=== PATIENT | female | born 1990 ===

== ENCOUNTER 2020-04-13 20:15 | Inpatient (IN) | payer OTHER ==
[2020-04-13 21:29] LABS: Absolute Lymphocytes (CBC) 1.7 K/uL (0.7-4.9); Basophils % 0.9 % (0-1.3); Hematocrit 28.1 % (36.0-45.0); Lymphocytes % 23.7 % (15.3-44.8); MPV 9.3 fL (7.6-11.3)
[2020-04-13 21:55] LABS: ALT/SGPT 44 U/L (12-78); AST/SGOT 35 U/L (15-37); Albumin 2.4 g/dL (3.4-5.0); Alkaline Phosphatase 103 U/L (45-117); BUN Blood Urea Nitrogen 12 mg/dL (7-18); Bicarbonate 24 mmol/L (21-32); Bilirubin Direct < 0.1 mg/dL (0-0.2); Bilirubin Total 0.2 mg/dL (0.2-1.0); Glucose Level 69 mg/dL (74-106); Magnesium 1.7 mg/dL (1.8-2.4); NT PRO-BNP 1400 pg/mL (<125); Potassium 4.2 mmol/L (3.5-5.1); Protein, Total 6.4 g/dL (6.4-8.2); Sodium Level 143 mmol/L (136-145); Troponin (Emerg Dept Use Only) < 0.02 ng/mL (0.0-0.045)
[2020-04-13 22:07] LABS: Protime INR 0.87
[2020-04-13 22:55] LABS: Urine Blood 3+ (NEG); Urine Glucose NEGATIVE (NEG); Urine Protein 2+ (NEG)
[2020-04-13 22:56] LABS: Urine Bacteria <20 /HPF (<20); Urine Culture Reflex Order REFLEXED; Urine RBC >50 /HPF (NONE SEEN)
[2020-04-14] MEDS ORDERED: MAGNESIUM SULFATE 1 gm IVPB 1 GM/100 ML BAG IV ONE (00:56)
[2020-04-14] MEDS ORDERED: FUROSEMIDE 20 MG/ 2ML VIAL ONE (01:46)
--- NOTE | 2020-04-14 02:44 | ER ---
Nurse's Notes [facility] Name: Ramírez Espinosa Age: 29 yrs Sex: Female : 1990 Arrival Date: 04/13/2020 Time: 20:18 Bed 16 Private MD: Diagnosis: Pleural effusion in other conditions classified elsewhere-bilateral;Pulmonary edema Presentation: 04/13 20:52 Chief complaint: Patient states: she had a on Saturday and has now developed bb SOB and has had bilateral leg swelling since the which has not gone away. Coronavirus screen: At this time, the client does not indicate any symptoms associated with coronavirus-19. Ebola Screen: No symptoms or risks identified at this time. Initial Sepsis Screen: Does the patient meet any 2 criteria? No. Patient's initial sepsis screen is negative. Does the patient have a suspected source of infection? No. Patient's initial sepsis screen is negative. Risk Assessment: Do you want to hurt yourself or someone else? Patient reports no desire to harm self or others. Onset of symptoms was April 13, 2020. 20:52 Method Of Arrival: Ambulatory bb 20:52 Acuity: JOAO 2 bb Triage Assessment: 20:54 General: Appears uncomfortable, Behavior is cooperative, anxious. Pain: Complains of bb pain in abdomen Pain currently is 2 out of 10 on a pain scale. Neuro: Level of Consciousness is awake, alert, obeys commands, Oriented to person, place, time, situation. Respiratory: Reports shortness of breath Onset: The symptoms/episode began/occurred today, the patient has moderate shortness of breath. 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 - Social history:: Smoking status: Patient denies any tobacco usage or history of. Screenin:50 Abuse screen: Denies threats or abuse. Nutritional screening: No deficits noted. jb4 Tuberculosis screening: No symptoms or risk factors identified. Fall Risk None identified. Assessment: 20:50 General: Appears in no apparent distress. distressed, Behavior is calm, cooperative. jb4 Pain: Denies pain. Neuro: Level of Consciousness is awake, alert, obeys commands, Oriented to person, place, time, situation. Cardiovascular: Patient's skin is warm and dry. Rhythm is sinus rhythm. Respiratory: Airway is patent Respiratory effort is even, labored, Respiratory pattern is regular, tachypnea Breath sounds are clear bilaterally. GI: No signs and/or symptoms were reported involving the gastrointestinal system. : No signs and/or symptoms were reported regarding the genitourinary system. EENT: No signs and/or symptoms were reported regarding the EENT system. Derm: Skin is intact, Skin is pink, warm \T\ dry. Musculoskeletal: Circulation, motion, and sensation intact. Range of motion: intact in all extremities. 22:00 Reassessment: Patient and/or family updated on plan of care and expected duration. Pain jb4 level reassessed. PT remains A\T\O x4. Remains tachypneic, reports feeling better while sitting in the bed, continues to reports feeling short of breath. 23:00 Reassessment: No changes from previously documented assessment. Patient and/or family jb4 updated on plan of care and expected duration. Pain level reassessed. 04/14 00:00 Reassessment: Patient and/or family updated on plan of care and expected duration. Pain jb4 level reassessed. Pt is resting comfortably in bed. Updated on POC. PT verbalizes understanding of POC. PT is tachypneic, reports some SOB. Reports it is no worse than before. Assisted with sitting up in bed. Reports dyspnea decreased with sitting up. 01:00 Reassessment: Patient and/or family updated on plan of care and expected duration. Pain jb4 level reassessed. PT is resting in bed. Remains A\T\Ox4. respirations are even and unlabored. Pt continues to report intermittent dyspnea. Currently denies shortness of breath. Denies pain. No s/s of distress noted. 02:15 Reassessment: Patient and/or family updated on plan of care and expected duration. Pain jb4 level reassessed. Patient is alert, oriented x 3, equal unlabored respirations, skin warm/dry/pink. PT updated on plan of care of, updated on result. Informed of need for transfer. PT ambulated to the restroom. Tolerated well. Denies shortness of breath. is now back in bed resting comfortably. 03:15 Reassessment: Patient and/or family updated on plan of care and expected duration. Pain jb4 level reassessed. Patient is alert, oriented x 3, equal unlabored respirations, skin warm/dry/pink. Pt reports feeling better after medication administration. Denies pain. Remains A\T\Ox4. 04:07 Reassessment: No changes from previously documented assessment. Patient and/or family jb4 updated on plan of care and expected duration. Pain level reassessed. Patient is alert, oriented x 3, equal unlabored respirations, skin warm/dry/pink. 04:30 Reassessment: PT admitted to ER hold. jb4 15:13 Reassessment: PT NOTIFIED OF NEGATIVE COVID RESULTS. Vital Signs: 04/13 20:52 BP 155 / 99; Pulse 79; Resp 26 S; Temp 98.4(O); Pulse Ox 97% on R/A; Weight 108.86 kg bb (R); Height 5 ft. 3 in. (160.02 cm) (R); Pain 2/10; 21:30 BP 145 / 85; Pulse 67; Resp 24; Pulse Ox 98% on R/A; jb4 22:30 BP 140 / 75; Pulse 77; Resp 28; Pulse Ox 97% on R/A; jb4 04/14 00:00 BP 137 / 91; Pulse 74; Resp 22; Pulse Ox 98% on R/A; jb4 01:00 BP 146 / 86; Pulse 64; Resp 20; Pulse Ox 98% on R/A; jb4 01:45 BP 140 / 66; Pulse 76; Resp 20; Pulse Ox 97% on R/A; jb4 02:45 BP 129 / 81; Pulse 74; Resp 22; Pulse Ox 97% on R/A; jb4 03:45 BP 130 / 85; Pulse 70; Resp 20; Pulse Ox 98% on R/A; jb4 04:30 BP 151 / 92; Pulse 70; Resp 18; Pulse Ox 98% on R/A; jb4 04/13 20:52 Body Mass Index 42.51 (108.86 kg, 160.02 cm) ED Course: 04/13 20:18 Patient arrived in ED. cf2 20:49 Laureano Gonzalez PA is PHCP. cp 20:49 Salomon Baxter MD is Attending Physician. cp 20:50 Patient has correct armband on for positive identification. Placed in gown. Bed in low jb4 position. Call light in reach. Side rails up X 1. 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 Pulse ox on. NIBP on. 20:53 Triage completed. bb 20:54 Arm band placed on Patient placed in an exam room, on a stretcher, on pulse oximetry. bb 20:57 Duglas Trammell, RN is Primary Nurse. jb4 21:42 EKG done, by ED staff, reviewed by Laureano FITZGERADL Flu and/or RSV swab sent to lab. PT jp3 swabbed for COVID-19. 22:10 XRAY Chest (1 view) In Process Unspecified. EDMS 22:33 Urine Microscopic Only Sent. jb4 22:53 US Extremity Venous W Compression Jaswant In Process Unspecified. EDMS 08 00:05 CT Chest For PE Angio In Process Unspecified. EDMS 02:43 Wilberto Fine is Hospitalizing Provider. cp 04:30 No provider procedures requiring assistance completed. Patient admitted, IV remains in jb4 place. Administered Medications: 00:55 Drug: Magnesium Sulfate 1 grams Route: IVPB; Infused Over: 1 hrs; Site: left jb4 antecubital; 01:55 Follow up: Response: No adverse reaction; IV Status: Completed infusion jb4 01:50 Drug: Lasix 20 mg Route: IVP; Site: left antecubital; jb4 02:30 Follow up: Response: No adverse reaction; Marked relief of symptoms jb4 03:47 Drug: PHENobarbital 60 mg Route: PO; jb4 04:12 Follow up: Response: No adverse reaction jb4 Outcome: 02:44 Decision to Hospitalize by Provider. cp 04:30 Admitted to ER Hold. Please see [facility] for further documentation. jb4 04:30 Condition: stable 04:30 Discharge instructions given to patient, Instructed on the need for admit, Demonstrated understanding of instructions. 11:34 Patient left the ED. ph Signatures: Dispatcher [employer] EDMS Marci Aguirre RN RN bb Hall, Patricia RN RN ph Laureano Gonzalez PA PA cp Moriah Pinzon RN RN Duglas Trammell RN RN jb4 Dillon Tracy jp3 Alfonso Rao cf2 Corrections: (The following items were deleted from the chart) 00:04/13 20:50 Cardiovascular: Patient's skin is warm and dry. jb4 jb4 04/14 00:04/13 20:50 Respiratory: Airway is patent Respiratory effort is even, labored, jb4 Respiratory pattern is regular, tachypnea jb4
--- NOTE | 2020-04-14 02:44 | EDPHYS ---
Physician Documentation [facility] Name: Ramírez Espinosa Age: 29 yrs Sex: Female : 1990 Arrival Date: 04/13/2020 Time: 20:18 Bed 16 Private MD: ED Physician Salomon Baxter HPI: 04/13 21:15 This 29 yrs old Unknown Female presents to ER via Ambulatory with complaints of High cp Blood Pressure, Leg Swelling, Shortness Of Breath, Ringing in ears. 21:15 The patient has shortness of breath with light activity. cp 21:15 Onset: The symptoms/episode began/occurred gradually. Duration: The symptoms are cp continuous, and are steadily getting worse. Associated signs and symptoms: Pertinent negatives: chest pain, productive cough, diaphoresis, dizziness, fever, hemoptysis. Severity of symptoms: in the emergency department the symptoms are unchanged despite home interventions. Patient reports having recent delivery of a healthy [address] Azar at [facility]. Patient denies complications and reports was due to positioning of and infant was full-term. 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 - Social history:: Smoking status: Patient denies any tobacco usage or history of. ROS: 21:20 Constitutional: Negative for body aches, chills, fever, poor PO intake. cp 21:20 Eyes: Negative for injury, pain, redness, and discharge. cp 21:20 ENT: Negative for ear pain, sore throat, difficulty swallowing, difficulty handling secretions. 21:20 Cardiovascular: Positive for edema, Negative for chest pain, palpitations. 21:20 Respiratory: Positive for dyspnea on exertion, shortness of breath, on exertion. Negative for cough, wheezing. 21:20 Abdomen/GI: Positive for abdominal pain, Negative for nausea, vomiting, and diarrhea. 21:20 Back: Negative for radiated pain. 21:20 : Negative for urinary symptoms. 21:20 Skin: Negative for rash. 21:20 Neuro: Negative for altered mental status, headache, syncope, weakness. 21:20 All other systems are negative. Exam: 21:25 Constitutional: The patient appears in no acute distress, alert, awake, cp non-diaphoretic, non-toxic, well developed, well nourished. 21:25 Head/Face: Normocephalic, atraumatic. cp 21:25 Eyes: Periorbital structures: appear normal, Conjunctiva: normal, no exudate, no injection, Sclera: no appreciated abnormality, Lids and lashes: appear normal, bilaterally. 21:25 ENT: External ear(s): are unremarkable, Nose: is normal, Mouth: Lips: moist, Oral mucosa: moist, Posterior pharynx: Airway: no evidence of obstruction, patent. 21:25 Neck: ROM/movement: is normal, is supple, without pain, no range of motions limitations, no meningismus. 21:25 Chest/axilla: Inspection: normal, Palpation: is normal, no crepitus, no tenderness. 21:25 Cardiovascular: Rate: normal, Rhythm: regular, Edema: pedal edema, that is mild, JVD: is not appreciated. 21:25 Respiratory: the patient does not display signs of respiratory distress, Respirations: labored breathing, is not present, intercostal retractions, are absent, shallow respirations, are not present, Breath sounds: are clear throughout, no decreased breath sounds, no stridor, no wheezing. 21:25 Abdomen/GI: Inspection: abdomen appears normal, Bowel sounds: active, all quadrants, Palpation: soft, in all quadrants, mild abdominal tenderness, in the right lower quadrant and left lower quadrant, rebound tenderness, is not appreciated, voluntary guarding, is elicited in the right lower quadrant and left lower quadrant. 21:25 Back: pain, is absent, ROM is normal. 21:25 Skin: no rash present. 21:25 Neuro: Orientation: to person, place \T\ time. Mentation: is normal, Motor: moves all fours, strength is normal. 21:50 ECG was reviewed by the Attending Physician. cp Vital Signs: 20:52 BP 155 / 99; Pulse 79; Resp 26 S; Temp 98.4(O); Pulse Ox 97% on R/A; Weight 108.86 kg bb (R); Height 5 ft. 3 in. (160.02 cm) (R); Pain 2/10; 21:30 BP 145 / 85; Pulse 67; Resp 24; Pulse Ox 98% on R/A; jb4 22:30 BP 140 / 75; Pulse 77; Resp 28; Pulse Ox 97% on R/A; jb4 04/14 00:00 BP 137 / 91; Pulse 74; Resp 22; Pulse Ox 98% on R/A; jb4 01:00 BP 146 / 86; Pulse 64; Resp 20; Pulse Ox 98% on R/A; jb4 01:45 BP 140 / 66; Pulse 76; Resp 20; Pulse Ox 97% on R/A; jb4 02:45 BP 129 / 81; Pulse 74; Resp 22; Pulse Ox 97% on R/A; jb4 03:45 BP 130 / 85; Pulse 70; Resp 20; Pulse Ox 98% on R/A; jb4 04:30 BP 151 / 92; Pulse 70; Resp 18; Pulse Ox 98% on R/A; jb4 04/13 20:52 Body Mass Index 42.51 (108.86 kg, 160.02 cm) bb MDM: 04/13 21:21 Patient medically screened. 04/14 01:49 Data reviewed: vital signs, nurses notes, lab test result(s), EKG, radiologic studies, cp CT scan, plain films. 02:18 ED course: Spoke with transfer center at [facility] concerning patient, cp request denied due to the facilities lack of cardiology coverage. 04/13 21:09 Order name: Basic Metabolic Panel; Complete Time: 22:08 [facility] 04/13 22:09 Interpretation: Normal except: CL 111; GLUC 69. 04/13 21:09 Order name: CBC with Diff; Complete Time: 22:08 [facility] 04/13 22:09 Interpretation: Normal except: RBC 3.10; HGB 9.7; HCT 28.1; EOSINOPHIL % 4.7. 04/13 21:09 Order name: LFT's; Complete Time: 22:08 [facility] 04/13 21:09 Order name: Magnesium; Complete Time: 22:08 [facility] 04/13 21:09 Order name: NT PRO-BNP; Complete Time: 22:08 [facility] 04/13 22:09 Interpretation: NT PRO-BNP 1400; Reviewed. 04/13 21:09 Order name: PT-INR; Complete Time: 00:33 jb4 04/13 21:09 Order name: Troponin (emerg Dept Use Only); Complete Time: 22:08 jb4 04/13 21:21 Order name: COVID-19 04/13 21:21 Order name: Flu 04/13 21:21 Order name: CORONAVIRUS EDVT 04/13 21:21 Order name: Influenza Screen (A ; Complete Time: 00:33 EDMS 04/13 22:12 Order name: D-Dimer; Complete Time: 00:33 EDMS 04/14 02:23 Interpretation: Abnormal: D-DIMER 2369. cp 04/13 22:12 Order name: Urine Microscopic Only; Complete Time: 00:33 04/14 00:33 Interpretation: Normal except: UWBC 10-20; URBC >50. 04/13 22:35 Order name: Urine Dipstick--Ancillary (enter results); Complete Time: 00:33 [facility] 04/13 21:09 Order name: XRAY Chest (1 view); Complete Time: 10:02 [facility] 04/13 21:09 Order name: EKG; Complete Time: 21:10 [facility] 04/13 21:09 Order name: Cardiac monitoring; Complete Time: 22:04 [facility] 04/13 21:09 Order name: EKG - Nurse/Tech; Complete Time: 22:04 [facility] 04/13 21:09 Order name: IV Saline Lock; Complete Time: 22:04 [facility] 04/13 21:09 Order name: Labs collected and sent; Complete Time: 22:04 [facility] 04/13 21:09 Order name: O2 Per Protocol; Complete Time: 22:04 [facility] 04/13 22:13 Order name: US Extremity Venous W Compression Jaswant; Complete Time: 10:02 04/13 22:27 Order name: CT Chest For PE Angio 04/13 22:58 Order name: Urine Culture EDVT 04/14 06:34 Order name: Troponin I; Complete Time: 10:02 EDMS 04/14 06:34 Order name: Thyroid Stimulating Hormone; Complete Time: 10:02 EDMS 04/14 09:49 Order name: Troponin I; Complete Time: 10:02 EDVT 04/13 21:09 Order name: O2 Sat Monitoring; Complete Time: 22:04 jb4 04/13 21:21 Order name: Document PUI#; Complete Time: 22:04 cp 04/13 21:21 Order name: Droplet/Contact Precautions; Complete Time: 22:04 cp 04/13 21:21 Order name: [facility] [phone]/ ; Complete Time: 22:04 cp 04/13 22:12 Order name: Urine Dipstick-Ancillary (obtain specimen); Complete Time: 22:31 cp EC/05 21:50 Rate is 68 beats/min. Rhythm is regular. TN interval is normal. QRS interval is normal. cp QT interval is normal. T waves are Inverted in lead aVR. Interpreted by me. Reviewed by me. Administered Medications: 04/14 00:55 Drug: Magnesium Sulfate 1 grams Route: IVPB; Infused Over: 1 hrs; Site: left [facility] antecubital; 01:55 Follow up: Response: No adverse reaction; IV Status: Completed infusion 4 01:50 Drug: Lasix 20 mg Route: IVP; Site: left antecubital; 4 02:30 Follow up: Response: No adverse reaction; Marked relief of symptoms jb4 03:47 Drug: PHENobarbital 60 mg Route: PO; jb4 04:12 Follow up: Response: No adverse reaction [facility] Disposition: 04/15 04:33 Co-signature as Attending Physician, Salomon Baxter MD. 7 Disposition: 04/14/20 02:44 Hospitalization ordered by Wilberto Fine for Inpatient Admission. Preliminary diagnosis are Pleural effusion in other conditions classified elsewhere - bilateral, Pulmonary edema. - Bed requested for [facility] ER HOLD. - Status is Inpatient Admission. ph - Condition is Stable. - Problem is new. - Symptoms have improved. Signatures: Dispatcher [employer] EDMS Marci Aguirre RN RN Amauri Stubbs, [employer] CONE TREATER-Cla1 Jane Bragg RN RN tl1 Sandrita Mota RN RN Laureano Barragan PA PA cp Bryson, James, RN RN jb4 Salomon Baxter MD MD 7 Corrections: (The following items were deleted from the chart) 04/13 22:09 22:09 Normal except: RBC 3.10; HGB 9.7; HCT 28.1. cp cp 04/14 04:08 02:44 Hospitalization Ordered by Wilberto Fine for Inpatient Admission. Preliminary tl1 diagnosis is Pleural effusion in other conditions classified elsewhere - bilateral; Pulmonary edema. Bed requested for Telemetry/MedSurg (Inpatient). Status is Inpatient Admission. Condition is Stable. Problem is new. Symptoms have improved. cp 11:34 04:08 04/14/2020 02:44 Hospitalization Ordered by Wilberto Fine for Inpatient ph Admission. Preliminary diagnosis is Pleural effusion in other conditions classified elsewhere - bilateral; Pulmonary edema. Bed requested for [facility] ER HOLD. Status is Inpatient Admission. Condition is Stable. Problem is new. Symptoms have improved. tl1
--- NOTE | 2020-04-14 03:37 | P.HP ---
Certification for Inpatient Patient admitted to: Inpatient With expected LOS: >2 Midnights Practitioner: I am a practitioner with admitting privileges, knowledge of patient current condition, hospital course, and medical plan of care. Services: Services provided to patient in accordance with Admission requirements found in Title 42 Section 412.3 of the Code of Federal Regulations Patient History Date of Service: 04/14/20 Reason for admission: Shortness of breath History of Present Illness: 29-year-old woman with no known past medical history presented to the ED with a complaint of shortness of breath of onset last night. Patient delivered by section of about 5 days ago. She reports receiving IV infusion for 3 days total. She denied any chest pain or palpitation. She denies any history of cardiac disease. Her chest x-ray in the ED demonstrates bilateral pulmonary edema. UA shows 2+ protein in the urine. Patient was not requiring oxygen during my examination in the ED. EKG shows normal sinus rhythm. No significant ST-T changes. Initial troponin is negative. Engraver Wood Dr. Marie and Group Account Director Dr. Rahman informed by the ED provider who recommended admission for further management. Patient is admitted for IV diuresis. - Past Medical/Surgical History -: None -: Caesarean section - Family History Family History: Reviewed- Non-Contributory - Social History Smoking Status: Never smoker Alcohol use: No CD- Drugs: No Place of Residence: Home Review of Systems Other: Except as documented, all other systems reviewed and negative. Physical Examination - Physical Exam General: Alert, In no apparent distress, Oriented x3 HEENT: Mucous membr. moist/pink, Sclerae nonicteric Neck: Supple, JVD not distended Respiratory: Normal air movement, Crackles/rales (Bilateral) Cardiovascular: Regular rate/rhythm, Normal S1 S2, No murmurs, Edema (1+ bilateral lower extremity pitting edema) Capillary refill: <2 Seconds Gastrointestinal: Normal bowel sounds, Soft and benign, Non-distended, No masses Musculoskeletal: No erythema Integumentary: No rashes, No tenderness/swelling Neurological: Normal strength at 5/5 x4 extr, Cranial nerves 3-12 intact - Studies Laboratory Data (last 24 hrs) 04/13/20 21:15: PT 10.3, INR 0.87 04/13/20 21:15: WBC 7.2, Hgb 9.7 L, Hct 28.1 L, Plt Count 251 04/13/20 21:15: Sodium 143, Potassium 4.2, BUN 12, Creatinine 0.71, Glucose 69 L, Magnesium 1.7 L, Total Bilirubin 0.2, AST 35, ALT 44, Alkaline Phosphatase 103 Microbiology Data (last 24 hrs): 04/13/20 21:34 Nasopharnyx Influenza Type A Antigen Screen - Final 04/13/20 21:34 Nasopharnyx Influenza Type B Antigen Screen - Final Assessment and Plan - Problems (Diagnosis) (1) Pulmonary edema Current Visit: Yes Status: Acute (2) Anemia Current Visit: Yes Status: Acute - Plan Admit to the medical floor. Start IV Lasix for diuresis. Obtain echocardiogram. Trend troponin Cardiology consult. Obs and Bioinformatics Computer Scientist Consult. Dr. Marie recommend seizure prophylaxis with phenobarbitone for now. - Advance Directives Does patient have a Living Will: No Does patient have a Durable POA for Healthcare: No
[2020-04-14] MEDS ORDERED: PHENOBARBITAL 32.4 MG TABLET PO ONE ×2 (03:54→08:58)
[2020-04-14] MEDS ORDERED: ONDANSETRON 4 MG/2 ML VIAL IV PRN (04:59)
[2020-04-14 05:09] VITALS: BMI 42.5
[2020-04-14 05:39] VITALS: O2SAT 98
[2020-04-14 06:34] LABS: Troponin I < 0.02 ng/mL (0.0-0.045)
--- NOTE | 2020-04-14 07:19 | RAD REPORT ---
EXAM DESCRIPTION: US - Extrem Venous W Compress Jaswant - 04/13/2020 10:52 pm CLINICAL HISTORY: SWELLING COMPARISON: None. TECHNIQUE: Real-time sonographic evaluation of the bilateral lower extremity common femoral, superfi cial femoral, popliteal and posterior tibial veins was performed. FINDINGS: Normal compressibility, flow augmentation, phasic flow and spontaneous flow are identified in the left and right lower extremity common femoral, superficial femoral, popliteal and posterior t ibial veins. No intraluminal filling defects seen. Preliminary findings provided at time of the study. IMPRESSION: No DVT in either lower extremity.
[2020-04-14 07:25] VITALS: TEMP 98.2
--- NOTE | 2020-04-14 07:26 | RAD REPORT ---
EXAM DESCRIPTION: RAD - Chest Single View - 04/13/2020 10:09 pm CLINICAL HISTORY: DYSPNEA COMPARISON: None TECHNIQUE: AP portable chest image was obtained 04/13/2020 10:09 pm . FINDINGS: Lung volumes are low. Portable technique and prominent overlying soft tissues further limi t the examination. No focal consolidation or mass lesion. No significant degree of failure or volume overload. Mid and l ower lung field interstitial markings are prominent. This may all be artifact though a mild edema or interstitial infiltrate should be considered. Heart and vasculature are normal. No measurable pleural effusion and no pneumothorax. No acute bony abnormality seen. No acute aortic findings suspected. IMPRESSION: Limited portable study showing prominent interstitial pattern that could be due to exam limitations, mild interstitial edema or mild interstitial infiltrate.
[2020-04-14] MEDS ORDERED: FUROSEMIDE 40 MG/4 ML VIAL ONE (08:58)
[2020-04-14] MEDS ORDERED: ENOXAPARIN 40 MG/0.4 ML SQ ONE (08:58)
[2020-04-14] MEDS ORDERED: PHENOBARBITAL 32.4 MG TABLET PO SCH ×2 (09:00)
[2020-04-14] MEDS ORDERED: ENOXAPARIN 40 MG/0.4 ML SQ SCH (09:00)
[2020-04-14] MEDS ORDERED: FUROSEMIDE 40 MG/4 ML VIAL IV SCH (09:00)
[2020-04-14 09:17] VITALS: BP 150/99
--- NOTE | 2020-04-14 09:40 | CON ---
A 29-year-old primigravida, had at [facility] for failure to progress, persistent occipu t posterior about 5-6 days ago, had no issues with blood pressure at that time according to the patie nt, came into the emergency room last night complaining of shortness of breath. Evaluation showed mi ld pulmonary edema. The patient was given Lasix and says she is breathing better now. Other evaluat ion though shows her blood pressure is elevated to the 140/90 range. +2 protein in the urine. Minim al swelling that can be determined, but her reflexes are extremely brisk. 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 No headaches. No visual disturbances. The situation is discussed with Ms. Espinosa. She is quite luis daniel rt. Phenobarbital has been started. We will increase the dose to 60 mg 4 times a day instead of 3 t imes a day. We have discussed also magnesium sulfate, but the patient is averse to starting magnesiu m sulfate. She knows that is probably the better course and has greater chance of preventing the sei zures that she might have. The patient knows that this far postop seizure possibility is less likely , but still possible. Nonetheless, the patient does not want magnesium sulfate and will be kept on p henobarbital 4 times a day. She is pumping and discarding her breast milk as she has already been gi jose carlos other medications that could interfere with breast-feeding. She is apparently going to talk to [facility] in [place] and we will see what they decide to do. Right now though, I do think she does have preeclampsia and she will be evaluated for congestive heart failure by Cardiology today. Right now, though, quite stable. OLIVIER/MODL Voice ID: [id number] Report ID: [id number]
--- NOTE | 2020-04-14 10:33 | RAD REPORT ---
EXAM DESCRIPTION: CT - Chest For Pe Angio - 04/14/2020 12:04 am CLINICAL HISTORY: SOB COMPARISON: None Available. TECHNIQUE: CTA of the chest obtained following the uncomplicated intravenous administration of iodin ated contrast.. 3-D/MIP reformatted images of the chest available for evaluation. FINDINGS: Chest: Pulmonary arteries: Contrast bolus is adequate.No filling defects identified in the pulmonary arterie s to suggest pulmonary embolus. Thyroid: No abnormalities of the visualized thyroid. Great Vessels: Great vessels have normal anatomic configuration. Thoracic Aorta: No abnormalities of the thoracic aorta identified. Heart: No cardiomegaly, significant pericardial effusion, or coronary artery atherosclerosis Lymph Nodes: No enlarged mediastinal lymph nodes identified. Esophagus: No abnormalities of the esophagus identified. Other: No additional findings. Lungs: Groundglass opacities with interlobular septal thickening. Pleura: Small bilateral pleural effusions. No pneumothorax. Trachea/Airways: No abnormalities of the visualized trachea or airways. Bones: No destructive osseous lesions. Upper Abdomen: Limited images of the upper abdomen demonstrate no definite abnormalities of visualize d portions of the liver, gallbladder, pancreas, spleen, adrenal glands, or kidneys. IMPRESSION: 1. No pulmonary embolus. 2. Pulmonary edema pattern with small bilateral pleural effusions. This exam was performed according to our departmental dose-optimization program, which includes autom ated exposure control, adjustment of the mA and/or kV according to patient size and/or use of iterati ve reconstruction technique. Electronically signed by: Giovanni Jensen 04/14/2020 12:10 AM CDT Due to temporary technical issues with the PACS/Fluency reporting system, reports are being signed by the in house radiologist without review as a courtesy to ensure prompt reporting. The interpreting r adiologist is fully responsible for the content of the report.
--- NOTE | 2020-04-14 16:46 | CON ---
Date of Consultation: 04/14/2020 Reason For Admission: Hypertension, edema, and dyspnea on exertion. History Of Present Illness: Ms. Espinosa is a 29-year-old, just recently few days, came in with edema, hypertension, dyspnea on exertion. Chest x-ray showed possible pulmonary edema. She had a blood pressure of 140/99. Denied any chest pain or syncope or palpitation. She has already been seen by Dr. Valentin and there was a thought that she may be preeclamptic. I believe there is a plan to transfer her to the facility where she has her baby. The patient has felt better after IV Lasix ove rnight. Past Medical History: Negative. Allergies: NONE. Review of Systems: Negative. Social History: Negative. Family History: Noncontributory. Medications: At home are none. Physical Examination: General: She was in no acute distress. Vital Signs: Her blood pressure was 140/99. She was in sinus rhythm. HEENT: Negative. Neck: Supple with no bruit. Chest: Clear. Cardiac: Revealed a regular rhythm and rate. No S3 or S4 gallops. Abdomen: Obese, but benign. Extremities: Revealed 1 to 2+ edema. Diagnostic Data: Hemoglobin was 9.7. Her D-dimer was 2369. Magnesium was 1.7. Her BNP was 1400. Chest x-ray showed pulmonary edema. EKG is nonspecific. Impression And Plan: 1.A 29-year-old with hypertension, hypersensitivity, possible preeclampsia, is being seen by Dr. Mirlande yuen, maybe getting transferred to an outside facility. 2.Symptoms of dyspnea on exertion, pulmonary edema, peripheral edema, certainly could be secondary t o her preeclampsia, her weight gain, her recent . cardiomyopathy needs to be rul ed out. She needs to have an echocardiogram as soon as possible. Her magnesium needs to be suppleme nted. I think her elevation of D-dimer and BNP may be secondary to congestive heart failure or her r ecent . We will see what her blood pressure does. If she does need anything from a blood p ressure standpoint, I think carvedilol may be a good choice. I will discuss the case further with Dr Chio Fine. JORGE/KEITHL Voice ID: [id number] Report ID: [id number]
--- NOTE | 2020-04-15 09:47 | P.DS ---
Admission Date: 04/14/20 Discharge Date: 04/14/20 Disposition: [facility]SFER TO [facility] Discharge Condition: GOOD Reason for Admission: Shortness of breath - Problems (1) Pulmonary edema Status: Acute (2) Anemia Status: Acute Brief History of Present Illness: 29-year-old woman with no known past medical history presented to the ED with a complaint of shortness of breath of onset last night. Patient delivered by section of about 5 days ago. She reports receiving IV infusion for 3 days total. She denied any chest pain or palpitation. She denies any history of cardiac disease. Her chest x-ray in the ED demonstrates bilateral pulmonary edema. UA shows 2+ protein in the urine. Patient was not requiring oxygen during my examination in the ED. EKG shows normal sinus rhythm. No significant ST-T changes. Initial troponin is negative. Dental Patient Coordinator Dr. Marie and Supervisor Frame Assembly Dr. Rahman informed by the ED provider who recommended admission for further management. Patient is admitted for IV diuresis. Hospital Course: Patient admitted to the medical floor and treated with IV Lasix for diuresis. She did not require oxygen. Patient was ambulated in the hallways with no issues. She was hypertensive. Dr. Valentin recommended phenobarbital as seizure prophylaxis in case patient has eclampsia/severe preeclampsia. Patient's outside air carrier inspector culture requested to transfer her to their facility for further management. Patient was deemed clinically stable for transfer. Vital Signs/Physical Exam: Temp Pulse Resp BP Pulse Ox 98.2 F 75 15 150/99 H 97 04/14/20 07:24 04/14/20 09:00 04/14/20 07:24 04/14/20 09:00 04/14/20 07:24 General: Alert, In no apparent distress Neck: Supple, JVD not distended Respiratory: Clear to auscultation bilaterally, Normal air movement Cardiovascular: Edema (1+ bilateral lower extremity pitting edema) Capillary refill: <2 Seconds Gastrointestinal: Normal bowel sounds, Soft and benign Musculoskeletal: No erythema Integumentary: No rashes Neurological: Normal strength at 5/5 x4 extr Laboratory Data at Discharge: WBC 7.2 K/uL (4.3-10.9) 04/13/20 21:15 Hgb 9.7 g/dL (12.0-15.0) L 04/13/20 21:15 Hct 28.1 % (36.0-45.0) L 04/13/20 21:15 Plt Count 251 K/uL (152-406) 04/13/20 21:15 PT 10.3 SECONDS (9.5-12.5) 04/13/20 21:15 INR 0.87 04/13/20 21:15 Sodium 143 mmol/L (136-145) 04/13/20 21:15 Potassium 4.2 mmol/L (3.5-5.1) 04/13/20 21:15 BUN 12 mg/dL (7-18) 04/13/20 21:15 Creatinine 0.71 mg/dL (0.55-1.3) 04/13/20 21:15 Glucose 69 mg/dL (74-106) L 04/13/20 21:15 Magnesium 1.7 mg/dL (1.8-2.4) L 04/13/20 21:15 Total Bilirubin 0.2 mg/dL (0.2-1.0) 04/13/20 21:15 AST 35 U/L (15-37) 04/13/20 21:15 ALT 44 U/L (12-78) 04/13/20 21:15 Alkaline Phosphatase 103 U/L (45-117) 04/13/20 21:15 Troponin I < 0.02 ng/mL (0.0-0.045) 04/14/20 09:15 Home Medications: NK [No Home Meds] 04/14/20
== END 2020-04-14 11:36 | disposition short-term general hospital (02) | DRG 776 ==
LOC: ER 20:15 → ERHOLD 04-14 03:41
PROVIDERS: ADMIT Internal Medicine; ATTEND Internal Medicine
DX: O14.95 Unspecified pre-eclampsia, complicating the puerperium (principal); J81.1 Chronic pulmonary edema; D64.9 Anemia, unspecified; O90.89 Other complications of the puerperium, not elsewhere classified; O90.81 Anemia of the puerperium; R06.02 Shortness of breath; Z20.828 Contact with and (suspected) exposure to other viral communicable diseases
CPT/HCPCS: 36415; 71045; 71275; 80048; 80076; 81003; 81015; 83735; 83880; 84443; 84484; 85025; 85379; 85610; 87086; 87088; 87804; 93005; 93970; 94760; 96365; 96375; 99285; J1650; J1940; J3475; Q9967; U0002